=== PATIENT | female | born 2000 | race Caucasian/White ===

== ENCOUNTER 2020-10-15 17:13 | Outpatient (REF) | payer BC, SELFPAY | END 2020-10-15 17:14 | disposition home or self-care (01) | LOC: HO.LAB 17:13 | PROVIDERS: Visit Provider Internal Medicine | DX: Z20.828 Contact with and (suspected) exposure to other viral communicable diseases (principal) | CPT/HCPCS: C9803; U0003 ==

== ENCOUNTER 2021-06-17 10:57 | Outpatient (REF) | payer BC, SELFPAY | END 2021-06-17 10:58 | disposition home or self-care (01) | LOC: HO.LAB 10:57 | PROVIDERS: PCP Internal Medicine; Visit Provider Internal Medicine | DX: Z20.822 Contact with and (suspected) exposure to COVID-19 (principal) | CPT/HCPCS: C9803; U0003; U0005 ==

== ENCOUNTER 2021-10-25 13:07 | Outpatient (REF) | payer BC, SELFPAY ==
[2021-10-25 15:06] LABS: Binax Now Covid-19 Ag Negative (Negative)
[2021-10-25 15:07] LABS: Binax Internal Control QC Valid; Binax Lot number: 9864
== END 2021-10-25 13:08 | disposition home or self-care (01) ==
LOC: HO.LAB 13:07
PROVIDERS: Visit Provider Internal Medicine
DX: Z20.822 Contact with and (suspected) exposure to COVID-19 (principal)
CPT/HCPCS: 36415; C9803

== ENCOUNTER 2022-08-19 14:00 | Emergency (ER) | payer BC, SELFPAY ==
--- NOTE | ~2022-08-19 | CT_ITS ---
EXAMINATION: CT SOFT TISSUE NECK WITH CONTRAST CLINICAL INFORMATION: Left subarticular swelling. COMPARISON: None TECHNIQUE: Following the intravenous administration of 100 mL of Omnipaque 350 intravenous contrast, helical imaging was performed in the axial plane with generation of coronal and sagittal reformatted images. This CT examination was performed using dose optimization techniques as appropriate, variously including the following: *Automated exposure control *Adjustment of mA and/or kV according to patient size (this includes techniques or standardized protocols for targeted exams where dose is matched to indication/reason for exam; i.e. extremities or head) *Use of iterative reconstruction technique DLP: 424 mGy-cm FINDINGS: There is a large tubular area of hypoattenuation centered within the left floor of mouth measuring up to 5.5 cm in maximal AP dimension, 2.9 cm in maximal transverse dimension, and 3.2 cm in maximal craniocaudal dimension. There is a rind of enhancing soft tissue along the periphery of the hypodensity. The lesion extends posteriorly into the submandibular triangle causing deformity of the submandibular gland which is otherwise unremarkable. The oral tongue appears distorted. No definite acute inflammation is seen. The right-sided mandibular gland appears normal. Both parotid glands appear normal. There is no definite dilatation of either [place]'s duct. No sialolith is seen. The nasopharynx and oropharynx appear normal. The vocal folds appear symmetric. No enlarged cervical chain lymph nodes are seen. The left lobe of the thyroid gland appears absent. There is a top normal left upper paratracheal lymph node. No enlarged mediastinal lymph nodes are seen. The upper lungs are clear. The major neck vessels demonstrate normal enhancement. No acute intracranial abnormality is seen. The spine is intact with mild scoliotic changes noted. CT/CT soft tissue neck w IV con IMPRESSION: Large predominantly hypoattenuating lesion seen along the left sided floor of mouth measuring up to 5.5 cm. Differential considerations include dermoid/epidermoid, ranula, and lymphatic malformation among other etiologies. ENT evaluation recommended.
[2022-08-19 15:44] VITALS: BP 105/73; PULSE 81; RESP 16; O2SAT 99; BMI 22.6
[2022-08-19 16:29] LABS: MANUAL DIFF FLAG NO
[2022-08-19 16:32] LABS: Basophils Percent Auto 0.5 % (0-2); Eosinophils Percent Auto 0.7 % (0-4); Hemoglobin 12.4 g/dl (12.0-16.0); Imm Gran Abs Auto 0.01 X10*3/uL (0.00-0.03); Imm Gran Pct Auto 0.2 % (0.0-0.4); Lymphocytes Absolute Auto 1.4 X10*3/uL (1.2-4.9); Lymphocytes Percent Auto 23.7 % (20-40); Mean Corpuscular HGB Conc 33.5 g/dl (31.0-35.0); Mean Corpuscular Hemoglobin 26.9 pg (27.0-33.0); Mean Corpuscular Volume 80.3 fL (80.0-98.0); Mean Platelet Volume 11.1 fL (9.4-12.3); Monocytes Absolute Auto 0.4 X10*3/uL (0.1-1.2); Monocytes Percent Auto 6.6 % (2-11); Neutrophils Percent Auto 68.3 % (45-73); Platelet Count 196 X10*3/uL (160-400); Red Blood Count 4.61 X10*6/uL (4.20-5.50); Red Cell Distribution Width 12.7 % (11.0-16.0); White Blood Count 5.9 X10*3/uL (4.8-10.8)
[2022-08-19 16:47] LABS: Anion Gap 14 (12-20); Blood Urea Nitrogen 8 mg/dL (9-16); Calcium 8.8 mg/dL (8.4-10.2); Carbon Dioxide 19 mmol/L (22-29); Chloride 110 mmol/L (96-108); Creatinine Clr Calc Pharmacy 123.3; Estimated Glomerular Filt Rate > 60; Glucose Random 95 mg/dL (60-115); Potassium 3.9 mmol/L (3.3-5.1); Sodium 139 mmol/L (135-145)
--- NOTE | 2022-08-19 18:33 | ED.SKABFB ---
HPI - Skin/Abscess/Foreign Bdy General Chief complaint: Skin/Abscess/Foreign Body <MCKAYLA Del Rio Last Filed: 08/19/22 19:08> Stated complaint: Dental Abscess Jaw Line <MCKAYLA Del Rio Last Filed: 08/19/22 19:08> Time Seen by Provider: 08/19/22 18:19 <MCKAYLA Del Rio Last Filed: 08/19/22 19:08> Source: patient <MCKAYLA Del Rio Last Filed: 08/19/22 19:08> Mode of arrival: ambulatory <MCKAYLA Del Rio Last Filed: 08/19/22 19:08> Limitations: no limitations <MCKAYLA Del Rio Last Filed: 08/19/22 19:08> History of Present Illness HPI narrative: Patient is an otherwise healthy 22 year old female who presents to the ED today with complaints of neck swelling. She states she noticed a small bump on the L side of her neck that began enlarging 1 month ago which prompted her to see her PCP who treated her with PCN and another medication that the patient could not recall. After completing the course of abx, the pt reports the bump continued to grow which prompted her visit here. She reports associated dysphagia, muffled voice, and radiating L ear pain. She denies any fevers, chills, rhinorrhea/runny nose, cough, dental pain/infections, SOB, CP, palpitations, abdominal pain, N/V/D/C, urinary symptoms, leg pain/swelling, rashes, recent travel, known sick contacts, and a previous hx of these symptoms. Her family history is positive for throat cancer in her grandmother and thyroid disease in her mother. <MCKAYLA Del Rio Last Filed: 08/19/22 19:08> MD complaint: other (Mass on L side of anterior neck) <MCKAYLA Del Rio Last Filed: 08/19/22 19:08> Onset (ago): month(s) (1) <MCKAYLA Del Rio Last Filed: 08/19/22 19:08> Tetanus up to date: yes <MCKAYLA Del Rio Last Filed: 08/19/22 19:08> Location: neck <MCKAYLA Del Rio Last Filed: 08/19/22 19:08> Severity: severe <MCKAYLA Del Rio Last Filed: 08/19/22 19:08> Pain Consistency: constant <MCKAYLA Del Rio Last Filed: 08/19/22 19:08> Relieving factors: none <MCKAYLA Del Rio Last Filed: 08/19/22 19:08> Exacerbating factors: none <MCKAYLA Del Rio Last Filed: 08/19/22 19:08> Context: recent antibiotic (Treated with PCN 2 weeks ago) <MCKAYLA Del Rio Last Filed: 08/19/22 19:08> Treatments prior to arrival: none <MCKAYLA Del Rio Last Filed: 08/19/22 19:08> Related Data Allergies/Adverse reactions: Allergies Allergy/AdvReac Type Severity Reaction Status Date / Time No Known Allergies Allergy Unverified 07/12/20 19:50 [No Known Allergies*] <MCKAYLA Del Rio Last Filed: 08/19/22 19:08> Review of Systems Review of Systems: Constitutional : Denies history of same, Denies any other sites involved, Denies IV drug use, Denies history of MRSA, Denies swollen glands, Denies injury, Denies Fever, Denies Chills, , Denies Systemic symptoms HEENT: + dysphagia, + ear pain. No runny nose, no sore throat. Cardiovascular : No Chest Pain, No SOB Respiratory : No Dyspnea, no cough Gastrointestinal : No abdominal pain Musculoskeletal : No Joint Swelling Skin : + mass on neck, No skin laceration, No Foreign bodies, No spreading rash, Denies bites, Denies discharge, Neuro : No Weakness, No Numbness/tingling Psych : No SI/HI/thoughts of self injury <MCKAYLA Del Rio Last Filed: 08/19/22 19:08> Yes all other systems are reviewed and are negative <MCKAYLA Del Rio Last Filed: 08/19/22 19:08> [facility] Past Medical History Attestation statement: The following information was validated with the patient. <MCKAYLA Del Rio Last Filed: 08/19/22 19:08> Source: old records reviewed, obtained from family and nursing notes reviewed <MCKAYLA Del Rio Filed: 08/19/22 19:08> Social History Social History: Social History Advance Directives: No Advance Directives Information Provided: No <MCKAYLA Del Rio - Last Filed: 08/19/22 19:08> Physical Exam Vital Signs: Vital Signs: Last Vital Signs Pulse 81 08/19/22 15:44 Resp 16 08/19/22 15:44 BP 105/73 08/19/22 15:44 Pulse Ox 99 08/19/22 15:44 O2 Del Method 08/19/22 15:44 BMI result Body Mass Index 22.6 vital signs have been reviewed as normal and appeared to be correct. Blood pressure normal. Heart rate normal. Respiration rate normal. Temperature normal. Oxygen saturation normal. <MCKAYLA Del Rio - Last Filed: 08/19/22 19:08> Vital Signs: Last Vital Signs Pulse 81 08/19/22 15:44 Resp 16 08/19/22 15:44 BP 105/73 08/19/22 15:44 Pulse Ox 99 08/19/22 15:44 O2 Del Method 08/19/22 15:44 BMI result Body Mass Index 22.6 <Deana Lassiter CNP - Last Filed: 08/20/22 00:23> Appearance: Alert. Oriented X3. No acute distress. Head: Normal external exam. Normocephalic. Atraumatic. Eyes: PERRLA. EOMI. Conjunctiva and sclera normal. Eyelids normal. ENT: EAC normal. TM's Normal. Soft and hard palate within normal limits. Pharynx normal. Uvula midline. Moist mucous membranes. No lesions/ulcerations or masses noted on the tongue. Normal voice. No trismus noted. No drooling noted. Muffled voice noted. Dentation appears within normal limits. Not consistent with peritonsillar/pharyngeal/gingival or dental abscess. Not consistent with Kaz's angina. Neck: Neck mass noted on the L anterior aspect of the neck/mandibular area. Neck supple. FROM. No tracheal deviation noted. No crepitus is noted. No meningeal signs. No signs of trauma noted. CVS: Normal heart rate and rhythm. Heart sound normal. Pulses normal throughout. No murmurs/rales/gallops. Respiratory: No respiratory distress. Painless inspiration. Breath sounds normal. No wheezes/rales/rhonchi noted. Chest nontender. No crepitus is noted. No accessory muscle usage noted or decreased air movement noted. No signs of trauma. Abdomen: Soft and nontender. Nondistended. No guarding. No rigidity. Bowel sounds normal in all 4 quadrants. No distention noted. . Back: Full range of motion noted. Patient neuro intact bilaterally and distally on all 4 extremities. Skin: Skin warm and dry. Normal skin color. Normal skin turgor. No rashes/lesions/lacerations noted. Extremities: No lower extremity edema. No calf tenderness is noted. Extremities exhibit normal range of motion.. Neuro: Oriented X 3. No motor deficit. No sensory deficit. Normal steady gait. No focal neuro deficits noted. CN's II-XII intact bilaterally? <MCKAYLA Del Rio - Last Filed: 08/19/22 19:08> Course Course Course Narrative: 18:35 Pt is an otherwise healthy 22 year old female who presents to the ED today with complaints of neck swelling. She states she noticed a small bump on the L side of her neck that began enlarging 1 month ago which prompted her to see her PCP who treated her with PCN and another medication that the patient could not recall. After completing the course of abx, the pt reports the bump continued to grow which prompted her visit here. She reports associated dysphagia, muffled voice, and radiating L ear pain. She denies any fevers, chills, rhinorrhea/runny nose, cough, dental pain/infections, SOB, CP, palpitations, abdominal pain, N/V/D/C, urinary symptoms, leg pain/swelling, rashes, recent travel, known sick contacts, and a previous hx of these symptoms. Her family history is negative for any thyroid disorders however positive for throat cancer in her grandmother. VSS. Notable edema and TTP along the L aspect of the anterior neck. Initial lab work consisted of CBC and BMP which were WNL. Plan: CT of soft tissue neck with contrast, PT/INR, CRP, ESR, Lactate, COVID, HCG, blood cx x2 ordered to assess for infection, thyroid, KIRILL. Will re-evaluate pending labs and imaging. <MCKAYLA Del Rio - Last Filed: 08/19/22 19:08> Reevaluation(s) Reevaluation #1: - CT soft tissue neck with IV contrast, PT/INR, CRP, ESR, lactic, COVID, blood cultures, thyroid all pending at this time. - Sign out to RAJI Leblanc at thia time pending above. <MCKAYLA Del Rio - Last Filed: 08/19/22 19:08> Time: 19:05 <MCKAYLA Del Rio - Last Filed: 08/19/22 19:08> Reevaluation #2: Serum labs are overall unremarkable, coag studies are normal. Use are normal. Lactic acid is normal, COVID-19 is negative. Blood cultures are pending. Thyroid function is normal. CT of the soft tissue neck reveals a lesion along the left floor of the mouth measuring up to 5.5 cm. Upon examination, patient has no airway impairment, she is managing secretions, speaking clear full sentences. Discussed these findings with patient. Advised outpatient follow-up with ENT, provided contact information for Dr. Chung, and advised outpatient follow-up with primary care provider. Reviewed worrisome signs and symptoms to return back to the emergency department for. All questions were answered. Patient discharged home in stable condition. <Deana Lassiter CNP - Last Filed: 08/20/22 00:23> Time: 20:27 <Deana Lassiter CNP - Last Filed: 08/20/22 00:23> MDM - Skin/Abscess/Foreign Bdy Medical Records Attestation: I reviewed the patient's medical records. <MCKAYLA Del Rio - Last Filed: 08/19/22 19:08> Lab Data Attestation: I reviewed the patient's lab results. <MCKAYLA Del Rio - Last Filed: 08/19/22 19:08> Result diagrams: : 08/19/22 16:25 08/19/22 16:25 <MCKAYLA Del Rio - Last Filed: 08/19/22 19:08> Labs: Lab Results 08/19/22 08/19/22 08/19/22 Range/Units 16:25 16:25 16:25 WBC 5.9 (4.8-10.8) X10*3/uL RBC 4.61 (4.20-5.50) X10*6/uL Hgb 12.4 (12.0-16.0) g/dl Hct 37.0 (37.0-47.0) % MCV 80.3 (80.0-98.0) fL MCH 26.9 L (27.0-33.0) pg MCHC 33.5 (31.0-35.0) g/dl RDW 12.7 (11.0-16.0) % Plt Count 196 (160-400) X10*3/uL MPV 11.1 (9.4-12.3) fL Immature Gran % (Auto) 0.2 (0.0-0.4) % Neut % (Auto) 68.3 (45-73) % Lymph % (Auto) 23.7 (20-40) % [place] % (Auto) 6.6 (2-11) % Eos % (Auto) 0.7 (0-4) % Baso % (Auto) 0.5 (0-2) % Lymph # (Auto) 1.4 (1.2-4.9) X10*3/uL [place] # (Auto) 0.4 (0.1-1.2) X10*3/uL Eos # (Auto) 0.0 (0.0-0.4) X10*3/uL Baso # (Auto) 0.0 (0.0-0.2) X10*3/uL Abs Immat Gran (auto) 0.01 (0.00-0.03) X10*3/uL Absolute Neuts (auto) 4.0 (2.0-8.3) x10*3/uL Absolute Nucleated RBC 0.000 (0.0-0.012) X10*3/uL Nucleated RBC % (auto) 0.0 (0.0-0.2) /100WBC ESR 6 (0-20) MM/HR PT (10.0-13.1) SEC INR (0.9-1.1) Sodium 139 (135-145) mmol/L Potassium 3.9 (3.3-5.1) mmol/L Chloride 110 H (96-108) mmol/L Carbon Dioxide 19 L (22-29) mmol/L Anion Gap 14 (12-20) BUN 8 L (9-16) mg/dL Creatinine 0.67 (0.5-1.4) mg/dL Estim Creat Clear Calc 123.3 Estimated GFR > 60 Random Glucose 95 (60-115) mg/dL Lactic Acid (0.5-2.0) mmol/L Calcium 8.8 (8.4-10.2) mg/dL Total Bilirubin 0.8 (0.0-1.0) mg/dL Direct Bilirubin 0.3 (0.0-0.5) mg/dL AST 13 (5-31) U/L ALT < 6 (0-31) U/L Alkaline Phosphatase 44 (39-117) U/L C-Reactive Protein 0.04 (< or = 0.50) mg/dL Total Protein 7.3 (6.5-8.0) g/dL Albumin 4.3 (3.5-5.0) g/dL TSH 1.23 (0.32-4.0) uIU/mL Beta HCG, Quant < 2 mIU/mL COVID-19 ([facility]BER) (Negative) COVID-19 Clin Com Monoscreen (Negative) 08/19/22 08/19/22 08/19/22 Range/Units 16:25 19:55 19:55 WBC (4.8-10.8) X10*3/uL RBC (4.20-5.50) X10*6/uL Hgb (12.0-16.0) g/dl Hct (37.0-47.0) % MCV (80.0-98.0) fL MCH (27.0-33.0) pg MCHC (31.0-35.0) g/dl RDW (11.0-16.0) % Plt Count (160-400) X10*3/uL MPV (9.4-12.3) fL Immature Gran % (Auto) (0.0-0.4) % Neut % (Auto) (45-73) % Lymph % (Auto) (20-40) % [place] % (Auto) (2-11) % Eos % (Auto) (0-4) % Baso % (Auto) (0-2) % Lymph # (Auto) (1.2-4.9) X10*3/uL [place] # (Auto) (0.1-1.2) X10*3/uL Eos # (Auto) (0.0-0.4) X10*3/uL Baso # (Auto) (0.0-0.2) X10*3/uL Abs Immat Gran (auto) (0.00-0.03) X10*3/uL Absolute Neuts (auto) (2.0-8.3) x10*3/uL Absolute Nucleated RBC (0.0-0.012) X10*3/uL Nucleated RBC % (auto) (0.0-0.2) /100WBC ESR (0-20) MM/HR PT 13.0 (10.0-13.1) SEC INR 1.1 (0.9-1.1) Sodium (135-145) mmol/L Potassium (3.3-5.1) mmol/L Chloride (96-108) mmol/L Carbon Dioxide (22-29) mmol/L Anion Gap (12-20) BUN (9-16) mg/dL Creatinine (0.5-1.4) mg/dL Estim Creat Clear Calc Estimated GFR Random Glucose (60-115) mg/dL Lactic Acid (0.5-2.0) mmol/L Calcium (8.4-10.2) mg/dL Total Bilirubin (0.0-1.0) mg/dL Direct Bilirubin (0.0-0.5) mg/dL AST (5-31) U/L ALT (0-31) U/L Alkaline Phosphatase (39-117) U/L C-Reactive Protein (< or = 0.50) mg/dL Total Protein (6.5-8.0) g/dL Albumin (3.5-5.0) g/dL TSH (0.32-4.0) uIU/mL Beta HCG, Quant mIU/mL COVID-19 ([facility]BER) Negative (Negative) COVID-19 Clin Com See Note Monoscreen Negative (Negative) 08/19/22 Range/Units 20:00 WBC (4.8-10.8) X10*3/uL RBC (4.20-5.50) X10*6/uL Hgb (12.0-16.0) g/dl Hct (37.0-47.0) % MCV (80.0-98.0) fL MCH (27.0-33.0) pg MCHC (31.0-35.0) g/dl RDW (11.0-16.0) % Plt Count (160-400) X10*3/uL MPV (9.4-12.3) fL Immature Gran % (Auto) (0.0-0.4) % Neut % (Auto) (45-73) % Lymph % (Auto) (20-40) % [place] % (Auto) (2-11) % Eos % (Auto) (0-4) % Baso % (Auto) (0-2) % Lymph # (Auto) (1.2-4.9) X10*3/uL [place] # (Auto) (0.1-1.2) X10*3/uL Eos # (Auto) (0.0-0.4) X10*3/uL Baso # (Auto) (0.0-0.2) X10*3/uL Abs Immat Gran (auto) (0.00-0.03) X10*3/uL Absolute Neuts (auto) (2.0-8.3) x10*3/uL Absolute Nucleated RBC (0.0-0.012) X10*3/uL Nucleated RBC % (auto) (0.0-0.2) /100WBC ESR (0-20) MM/HR PT (10.0-13.1) SEC INR (0.9-1.1) Sodium (135-145) mmol/L Potassium (3.3-5.1) mmol/L Chloride (96-108) mmol/L Carbon Dioxide (22-29) mmol/L Anion Gap (12-20) BUN (9-16) mg/dL Creatinine (0.5-1.4) mg/dL Estim Creat Clear Calc Estimated GFR Random Glucose (60-115) mg/dL Lactic Acid 0.5 (0.5-2.0) mmol/L Calcium (8.4-10.2) mg/dL Total Bilirubin (0.0-1.0) mg/dL Direct Bilirubin (0.0-0.5) mg/dL AST (5-31) U/L ALT (0-31) U/L Alkaline Phosphatase (39-117) U/L C-Reactive Protein (< or = 0.50) mg/dL Total Protein (6.5-8.0) g/dL Albumin (3.5-5.0) g/dL TSH (0.32-4.0) uIU/mL Beta HCG, Quant mIU/mL COVID-19 (AMBER) (Negative) COVID-19 Clin Com Monoscreen (Negative) <MCKAYLA Del Rio - Last Filed: 08/19/22 19:08> Lab Results 08/19/22 08/19/22 08/19/22 Range/Units 16:25 16:25 16:25 WBC 5.9 (4.8-10.8) X10*3/uL RBC 4.61 (4.20-5.50) X10*6/uL Hgb 12.4 (12.0-16.0) g/dl Hct 37.0 (37.0-47.0) % MCV 80.3 (80.0-98.0) fL MCH 26.9 L (27.0-33.0) pg MCHC 33.5 (31.0-35.0) g/dl RDW 12.7 (11.0-16.0) % Plt Count 196 (160-400) X10*3/uL MPV 11.1 (9.4-12.3) fL Immature Gran % (Auto) 0.2 (0.0-0.4) % Neut % (Auto) 68.3 (45-73) % Lymph % (Auto) 23.7 (20-40) % [place] % (Auto) 6.6 (2-11) % Eos % (Auto) 0.7 (0-4) % Baso % (Auto) 0.5 (0-2) % Lymph # (Auto) 1.4 (1.2-4.9) X10*3/uL [place] # (Auto) 0.4 (0.1-1.2) X10*3/uL Eos # (Auto) 0.0 (0.0-0.4) X10*3/uL Baso # (Auto) 0.0 (0.0-0.2) X10*3/uL Abs Immat Gran (auto) 0.01 (0.00-0.03) X10*3/uL Absolute Neuts (auto) 4.0 (2.0-8.3) x10*3/uL Absolute Nucleated RBC 0.000 (0.0-0.012) X10*3/uL Nucleated RBC % (auto) 0.0 (0.0-0.2) /100WBC ESR 6 (0-20) MM/HR PT (10.0-13.1) SEC INR (0.9-1.1) Sodium 139 (135-145) mmol/L Potassium 3.9 (3.3-5.1) mmol/L Chloride 110 H (96-108) mmol/L Carbon Dioxide 19 L (22-29) mmol/L Anion Gap 14 (12-20) BUN 8 L (9-16) mg/dL Creatinine 0.67 (0.5-1.4) mg/dL Estim Creat Clear Calc 123.3 Estimated GFR > 60 Random Glucose 95 (60-115) mg/dL Lactic Acid (0.5-2.0) mmol/L Calcium 8.8 (8.4-10.2) mg/dL Total Bilirubin 0.8 (0.0-1.0) mg/dL Direct Bilirubin 0.3 (0.0-0.5) mg/dL AST 13 (5-31) U/L ALT < 6 (0-31) U/L Alkaline Phosphatase 44 (39-117) U/L C-Reactive Protein 0.04 (< or = 0.50) mg/dL Total Protein 7.3 (6.5-8.0) g/dL Albumin 4.3 (3.5-5.0) g/dL TSH 1.23 (0.32-4.0) uIU/mL Beta HCG, Quant < 2 mIU/mL COVID-19 ([facility]BER) (Negative) COVID-19 Clin Com Monoscreen (Negative) 08/19/22 08/19/22 08/19/22 Range/Units 16:25 19:55 19:55 WBC (4.8-10.8) X10*3/uL RBC (4.20-5.50) X10*6/uL Hgb (12.0-16.0) g/dl Hct (37.0-47.0) % MCV (80.0-98.0) fL MCH (27.0-33.0) pg MCHC (31.0-35.0) g/dl RDW (11.0-16.0) % Plt Count (160-400) X10*3/uL MPV (9.4-12.3) fL Immature Gran % (Auto) (0.0-0.4) % Neut % (Auto) (45-73) % Lymph % (Auto) (20-40) % [place] % (Auto) (2-11) % Eos % (Auto) (0-4) % Baso % (Auto) (0-2) % Lymph # (Auto) (1.2-4.9) X10*3/uL [place] # (Auto) (0.1-1.2) X10*3/uL Eos # (Auto) (0.0-0.4) X10*3/uL Baso # (Auto) (0.0-0.2) X10*3/uL Abs Immat Gran (auto) (0.00-0.03) X10*3/uL Absolute Neuts (auto) (2.0-8.3) x10*3/uL Absolute Nucleated RBC (0.0-0.012) X10*3/uL Nucleated RBC % (auto) (0.0-0.2) /100WBC ESR (0-20) MM/HR PT 13.0 (10.0-13.1) SEC INR 1.1 (0.9-1.1) Sodium (135-145) mmol/L Potassium (3.3-5.1) mmol/L Chloride (96-108) mmol/L Carbon Dioxide (22-29) mmol/L Anion Gap (12-20) BUN (9-16) mg/dL Creatinine (0.5-1.4) mg/dL Estim Creat Clear Calc Estimated GFR Random Glucose (60-115) mg/dL Lactic Acid (0.5-2.0) mmol/L Calcium (8.4-10.2) mg/dL Total Bilirubin (0.0-1.0) mg/dL Direct Bilirubin (0.0-0.5) mg/dL AST (5-31) U/L ALT (0-31) U/L Alkaline Phosphatase (39-117) U/L C-Reactive Protein (< or = 0.50) mg/dL Total Protein (6.5-8.0) g/dL Albumin (3.5-5.0) g/dL TSH (0.32-4.0) uIU/mL Beta HCG, Quant mIU/mL COVID-19 ([facility]) Negative (Negative) COVID-19 Clin Com See Note Monoscreen Negative (Negative) 08/19/22 Range/Units 20:00 WBC (4.8-10.8) X10*3/uL RBC (4.20-5.50) X10*6/uL Hgb (12.0-16.0) g/dl Hct (37.0-47.0) % MCV (80.0-98.0) fL MCH (27.0-33.0) pg MCHC (31.0-35.0) g/dl RDW (11.0-16.0) % Plt Count (160-400) X10*3/uL MPV (9.4-12.3) fL Immature Gran % (Auto) (0.0-0.4) % Neut % (Auto) (45-73) % Lymph % (Auto) (20-40) % [place] % (Auto) (2-11) % Eos % (Auto) (0-4) % Baso % (Auto) (0-2) % Lymph # (Auto) (1.2-4.9) X10*3/uL [place] # (Auto) (0.1-1.2) X10*3/uL Eos # (Auto) (0.0-0.4) X10*3/uL Baso # (Auto) (0.0-0.2) X10*3/uL Abs Immat Gran (auto) (0.00-0.03) X10*3/uL Absolute Neuts (auto) (2.0-8.3) x10*3/uL Absolute Nucleated RBC (0.0-0.012) X10*3/uL Nucleated RBC % (auto) (0.0-0.2) /100WBC ESR (0-20) MM/HR PT (10.0-13.1) SEC INR (0.9-1.1) Sodium (135-145) mmol/L Potassium (3.3-5.1) mmol/L Chloride (96-108) mmol/L Carbon Dioxide (22-29) mmol/L Anion Gap (12-20) BUN (9-16) mg/dL Creatinine (0.5-1.4) mg/dL Estim Creat Clear Calc Estimated GFR Random Glucose (60-115) mg/dL Lactic Acid 0.5 (0.5-2.0) mmol/L Calcium (8.4-10.2) mg/dL Total Bilirubin (0.0-1.0) mg/dL Direct Bilirubin (0.0-0.5) mg/dL AST (5-31) U/L ALT (0-31) U/L Alkaline Phosphatase (39-117) U/L C-Reactive Protein (< or = 0.50) mg/dL Total Protein (6.5-8.0) g/dL Albumin (3.5-5.0) g/dL TSH (0.32-4.0) uIU/mL Beta HCG, Quant mIU/mL COVID-19 ([facility]) (Negative) COVID-19 Clin Com Monoscreen (Negative) <Deana Lassiter CNP - Last Filed: 08/20/22 00:23> Imaging Data CT neck: Radiologist's impression: CT/CT soft tissue neck w IV con IMPRESSION: Large predominantly hypoattenuating lesion seen along the left sided floor of mouth measuring up to 5.5 cm. Differential considerations include dermoid/epidermoid, ranula, and lymphatic malformation among other etiologies. ENT evaluation recommended. <Deana Lassiter CNP - Last Filed: 08/20/22 00:23> Critical Care Time Critical Care Time Critical Care Time: Yes <MCKAYLA Del Rio - Last Filed: 08/19/22 19:08> Total Critical Care Time: 60 <MCKAYLA Del Rio - Last Filed: 08/19/22 19:08> Attestation: I personally attest to this time spent taking care of the patient <MCKAYLA Del Rio Last Filed: 08/19/22 19:08> Discharge Plan Discharge Clinical Impression: Mass of floor of mouth <MCKAYLA Del Rio Last Filed: 08/19/22 19:08> Patient Disposition: Home, Self-Care <MCKAYLA Del Rio - Last Filed: 08/19/22 19:08> Additional Instructions: As we discussed, your blood work was overall normal today. The CT scan does show lesion to the left floor of your mouth measuring up to 5.5 cm. At this time, it is unclear the cause of this. It is recommended that you contact an ear nose throat specialist for further evaluation and treatment. You have been given contact information for Juliet Sinha, the ENT associated with this hospital. Please call their office first thing tomorrow morning to arrange for an appointment. Additionally, please contact your primary care provider to arrange for a follow-up appointment within the next week, they may also be able to facilitate additional referrals to in ENT service. You can take ibuprofen 200 mg, 3 tablets (600mg) every 6-8 hours as needed for pain, in addition to Tylenol 500 mg, 2 tablets (1,000mg) every 4-6 hours as needed for pain, but not to exceed 3 doses daily (3,000mg).? Return to the emergency department with any new or worsening symptoms or concerns. <MCKAYLA Del Rio - Last Filed: 08/19/22 19:08> Referrals: Gibran Chung [Physician] - Thuy Dudley MD [Primary Care Provider] - <MCKAYLA Del Rio - Last Filed: 08/19/22 19:08> Stand Alone Forms: Work/School Release <MCKAYLA Del Rio - Last Filed: 08/19/22 19:08> Interventions: ED Discharge Assessment Last Done: 08/19/22 20:58 <MCKAYLA Del Rio - Last Filed: 08/19/22 19:08> Discharge Date/Time: 08/19/22 20:59 <MCKAYLA Del Rio - Last Filed: 08/19/22 19:08>
[2022-08-19 18:36] LABS: C Reactive Protein 0.04 mg/dL (< or = 0.50)
[2022-08-19 18:44] LABS: HCG Quantitative < 2 mIU/mL
[2022-08-19] MEDS: 0.9 % Sodium Chloride 1,000 ML 999 ML IVCONT (18:55)
[2022-08-19 19:08] LABS: Monotest Negative (Negative)
[2022-08-19 19:09] LABS: Alanine Aminotransferase < 6 U/L (0-31); Albumin Level 4.3 g/dL (3.5-5.0); Alkaline Phosphatase 44 U/L (39-117); Aspartate Amino Transferase 13 U/L (5-31); Bilirubin Direct 0.3 mg/dL (0.0-0.5); Bilirubin Total 0.8 mg/dL (0.0-1.0); Total Protein 7.3 g/dL (6.5-8.0)
[2022-08-19 19:27] LABS: TSH reflex Free T4 1.23 uIU/mL (0.32-4.0)
[2022-08-19] MEDS: iohexoL 350 MG/ML 100 ML INFUS..BTL IV (19:29)
[2022-08-19 19:32] LABS: Erythrocyte Sedimentation Rate 6 MM/HR (0-20)
[2022-08-19 20:12] LABS: INTERNATIONAL NORM RATIO 1.1 (0.9-1.1)
[2022-08-19 20:17] LABS: COVID-19 Test Negative (Negative)
[2022-08-19 20:20] LABS: Lactic Acid 0.5 mmol/L (0.5-2.0)
[2022-08-19] MEDS: Piperacillin Sodium/Tazobactam 3.375 GM in 0.9 % Sodium Chloride 50 ML IV (20:20)
== END 2022-08-19 20:59 | disposition home or self-care (01) ==
PROVIDERS: Physician Assistant Medical; Emergency Provider Emergency Medicine; PCP Internal Medicine
DX: K04.7 Periapical abscess without sinus (principal); M54.2 Cervicalgia; R51.9 Headache, unspecified; Z20.822 Contact with and (suspected) exposure to COVID-19; Z79.899 Other long term (current) drug therapy
CPT/HCPCS: 36415; 70491; 80048; 80076; 83605; 84443; 84702; 85025; 85610; 85652; 86140; 86308; 87040; 87635; 96374; 99283; 99284; J2543; Q9967